=== PATIENT | female | born 1955 | race Caucasian/White ===

== ENCOUNTER 2016-07-06 15:10 | Emergency (ER) | payer MEDICAID ==
[2016-07-06 15:25] VITALS: BMI 38.3
--- NOTE | 2016-07-06 16:26 | EDPRACDOC ---
- General Chief Complaint: Head Injury Stated Complaint: FELL HIT BACK OF HEAD & BACK NLOC PALE Time Seen by Provider: 07/06/16 16:20 Information Source: Patient - History of Present Illness Onset: 3 days ago HPI: PT STATES SHE GOT "WEAK" WEDNESDAY NIGHT, FELL BACKWARDS, HIT HER HEAD ON THE WALL, NO LOC, COMPLAINS OF HEADACHE, NECK AND BACK PAIN. NO N/V, NO DIZZINESS. PT STATES USING HER USUAL OXYCONTIN AND OXYCODONE WITHOUT RELIEF. Pain Severity: Reports: Severe Injuries/Pain Location: Reports: neck, back Reason for Fall: Reports: lost balance Loss of Consciousness: no loss of consciousness Modifying Factors: improves with: movement Associated Symptoms (Fall): Reports: neck pain. Denies: abdominal pain, chest pain, confusion, dizziness, headache, lightheadedness, muscle spasms, nausea/ vomiting, ringing in ears, seizures, shortness of breath, slurred speech, trouble walking, vision changes Allergies/Adverse Reactions: Allergies amitriptyline Allergy (Verified 07/06/16 15:22) Fainting ampicillin Allergy (Verified 07/06/16 15:22) Itching duloxetine HCl [From Cymbalta] Allergy (Verified 07/06/16 15:22) Dizziness methadone Allergy (Verified 07/06/16 15:22) Itching orphenadrine citrate [From Norflex] Allergy (Verified 07/06/16 15:22) Difficulty Breathing ramelteon [From Rozerem] Allergy (Verified 07/06/16 15:22) Drowsiness decongestant Allergy (Uncoded 07/06/16 15:22) Itching Home Medications: Ambulatory Orders Alendronate Sodium [Fosamax] 70 mg PO WEEKLY 07/06/16 Atorvastatin Calcium 10 mg PO DAILY 07/06/16 Buspirone HCl 10 mg PO DAILY 07/06/16 Celecoxib (anti-inflammatory) [Celebrex] 100 mg PO BID 07/06/16 Cetirizine HCl 10 mg PO DAILY 07/06/16 Cyclobenzaprine HCl [Flexeril] 10 mg PO TID PRN #20 tablet 07/06/16 Diltiazem HCl [Diltiazem 24Hr Cd] 120 mg PO DAILY 07/06/16 Docusate Sodium [Colace] 100 mg PO HS 07/06/16 Fluticasone Furoate [Arnuity Ellipta] 1 mcg IH DAILY 07/06/16 Gabapentin 400 mg PO BID 07/06/16 Insulin Glargine,Hum.rec.anlog [Lantus] 50 unit SQ HS 07/06/16 Levothyroxine Sodium 112 mcg PO DAILY 07/06/16 Metaxalone [Skelaxin] 800 mg PO BID PRN 07/06/16 Metformin HCl 500 mg PO BID 07/06/16 Mirabegron [Myrbetriq] 50 mg PO DAILY 07/06/16 Oxycodone (OxyCONTIN) Ext Rel [Oxycontin] 20 mg PO BID 07/06/16 Oxycodone HCl [Oxycodone HCl ER] 10 mg PO Q8H 07/06/16 Pantoprazole Sodium [Protonix] 40 mg PO BID 07/06/16 Ranitidine HCl 300 mg PO DAILY 07/06/16 Sucralfate 1 gm PO DAILY 07/06/16 ED Past Medical History - History Reviewed Yes Nurses notes reviewed and agree except as marked - Patient Medical History Cardiac History: Reports: Hypertension, Congestive Heart Failure, Cardiac Catheterization, Hypercholesterolemia Respiratory History: Reports: Asthma, COPD. Denies: Pneumonia Musculoskeletal History: Reports: Arthritis (hands,back,legs), Gout Psychological History: Reports: Anxiety. Denies: Depression, Substance Use Disorder Systemic History: Reports: Anemia (Extent and nature of anemia not known), Diabetes, Hypothyroidism Additional Past Medical History: CHRONIC BACK PAIN Surgical History: Reports: Cholecystectomy, Cardiac Catheterization, Hernia Surgery (hiatal surgery), Tonsillectomy/Adnoidectomy - Family Medical History Reports: Hypertension, Diabetes, Cancer, Stroke, Cardiac Disorders - Social Medical History Smoking Status: Former smoker Social History: Denies: Substance Use Disorder ETOH: None Substance Abuse: None EDM Review of Systems - Review of Systems Constitutional: negative: Chills, Fever Eyes: negative: Blurred Vision, Double Vision Ears: negative: Drainage Throat: negative: Pain Nose: negative: Bleeding Respiratory: negative: Cough, Shortness of Breath, Wheezing Cardiovascular: negative: Chest Pain, Palpitations Gastrointestinal: negative: Diarrhea, Nausea, Pain, Vomiting Genitourinary: negative: Dysuria, Frequency Neurological: Headache. negative: Dizziness, Numbness, Weakness Musculoskeletal: Back, Neck Integumentary: No Symptoms Reported - Physical Exam Constitutional: Alert (Awake), No apparent distress Oriented to: Time, Person, Place Last recorded Vital Signs: Last Vital Signs Temp 97.8 F 07/06/16 15:10 Pulse 84 07/06/16 15:10 Resp 18 07/06/16 15:10 BP 140/65 07/06/16 15:10 Pulse Ox 97 07/06/16 15:10 Oxygen Pulse Oxygen Saturation 97 O2 Device Oxygen Flow Rate Fraction of Inspired Oxygen ( FIO2) - HEENT Head: Normal ( normocephalic) Eye Exam: Normal (PERRL, EOMI, Sclera white) Oropharynx: Normal (Pharynx:Moist without exudate,Gums-no swelling) Tympanic Membrane: Normal ENT EAC: Normal TMJ: Normal Nose: No Symptoms Reported (septum midline) Neck: Paraspinal Tenderness, Tender. negative: Limited ROM - Respiratory/Cardiovascular Respiratory: Normal - CTA (BBS clear to auscultation without adventitious sounds ) Cardiovascular: Normal (RRR without murmur, gallop or rub) - GI Auscultation: Normal (NABS) Palpation: Normal (Soft,No rebound or guarding, non distended) Tenderness: Non tender Mcarthur's Sign: Negative - Musculoskeletal Back: Thoracic TTP. negative: Thoracic Step-off, Lumbar Step-off, Lumbar TTP Extremities: Normal (Normal tone, Pulses 2+ No cyanosis or edema, FROM) - Integumentary Skin: Normal, Warm, Dry Lymphatics: Normal (no adenopathy) - Neurologic Memory Impaired: Normal Motor Function: Normal (Normal tone, Pulses 2+ No cyanosis or edema, FROM) Cranial Nerve: Normal (CN II-X11 intact sensation, strength 5/5) Cerebellar: Normal Mood Description: Normal Perception: Normal ED Injury/Fall Exam - Physical Exam Head Injury: no evidence of injury Extremity Exam: no evidence of injury, normal range of motion, non-tender, no pedal edema Skin: Normal, Warm, Dry - [place] Coma Score Best Eye Response (Zina): (4) open spontaneously Best Verbal Response ([place]): (5) oriented Best Motor Response ([place]): (6) obeys commands [place] Total: 15 - Differential Diagnosis Contusion, Fall, Fracture - Results 07/06/16 18:24 - Diagnostic Imaging C-SPINE Image interpreted by: Radiologist CERVICAL SPINE - COMPLETE 4+ VIEW COMPARISON: Thoracic spine reported separately. FINDINGS: There is no evidence of cervical spine fracture or prevertebral soft tissue swelling. Alignment is normal. No other significant bone abnormalities are identified. The cervicothoracic junction and odontoid are poorly visualized. If there is strong clinical suspicion for cervical spine fracture, recommend CT. Moderate foraminal narrowing C4-C5. Facet arthropathy. IMPRESSION: No visible cervical spine fracture or traumatic subluxation. However the cervicothoracic junction and odontoid are poorly visualized. CT recommended. T-SPINE Image interpreted by: Radiologist THORACIC SPINE 2 VIEWS COMPARISON: Chest radiographs 05/12/2016. FINDINGS: There are 12 rib-bearing thoracic type vertebral bodies near anatomic alignment. There is a mild convex right scoliosis. There are mild degenerative changes throughout the spine. No evidence of acute fracture, paraspinal hematoma or widening of the interpedicular distance. IMPRESSION: No evidence of acute thoracic spine injury. Mild spondylosis. CT C-SPINE Image interpreted by: Radiologist CT CERVICAL SPINE WITHOUT CONTRAST TECHNIQUE: Multidetector CT imaging of the cervical spine was performed without intravenous contrast. Multiplanar CT image reconstructions were also generated. COMPARISON: Plain films earlier today. CT cervical spine 11/28/2015. FINDINGS: There is no visible cervical spine fracture, traumatic subluxation, prevertebral soft tissue swelling, or intraspinal hematoma. Intervertebral disc spaces are maintained. Moderately advanced facet arthropathy worst at C4-5 on the RIGHT. The odontoid is intact. No neck masses. Azygos lobe. No lung masses. No change from priors. IMPRESSION: No cervical spine fracture or traumatic subluxation. - Additional Information OLD RECORDS REVIEWED, H/H AND WBCs STABLE OVER LAST FEW MONTHS. Decision Time to Discharge: 19:23 - Departure Disposition: Home Condition: Stable Final Diagnosis: Neck pain Thoracic back pain Qualifiers: Chronicity: acute Back pain laterality: bilateral Qualified Code(s): M54.6 - Pain in thoracic spine Accidental fall Qualifiers: Encounter type: initial encounter Qualified Code(s): W19.XXXA - Unspecified fall, initial encounter Anemia Qualifiers: Anemia type: iron deficiency Iron deficiency anemia type: unspecified iron deficiency Qualified Code(s): D50.9 - Iron deficiency anemia, unspecified Instructions: Back Pain (ED) Education/Counseling Given To: Patient Education/Counseling Given Regarding: Diagnosis, Treatment, Prognosis, Follow Up Referrals: Wendy Neves MD [Primary Care Provider] - One Week Prescriptions: New Cyclobenzaprine HCl [Flexeril] 10 mg PO TID PRN #20 tablet PRN Reason: Muscle Spasms Continue Insulin Glargine,Hum.rec.anlog [Lantus] 50 unit SQ HS Gabapentin 400 mg PO BID Diltiazem HCl [Diltiazem 24Hr Cd] 120 mg PO DAILY Metformin HCl 500 mg PO BID Cetirizine HCl 10 mg PO DAILY Atorvastatin Calcium 10 mg PO DAILY Levothyroxine Sodium 112 mcg PO DAILY Buspirone HCl 10 mg PO DAILY Pantoprazole Sodium [Protonix] 40 mg PO BID Oxycodone HCl [Oxycodone HCl ER] 10 mg PO Q8H Docusate Sodium [Colace] 100 mg PO HS Ranitidine HCl 300 mg PO DAILY Oxycodone (OxyCONTIN) Ext Rel [Oxycontin] 20 mg PO BID Alendronate Sodium [Fosamax] 70 mg PO WEEKLY Sucralfate 1 gm PO DAILY Mirabegron [Myrbetriq] 50 mg PO DAILY Fluticasone Furoate [Arnuity Ellipta] 1 mcg IH DAILY Celecoxib (anti-inflammatory) [Celebrex] 100 mg PO BID Metaxalone [Skelaxin] 800 mg PO BID PRN PRN Reason: Pain Additional Instructions: CONTINUE YOUR USUAL MEDICATIONS BEFORE.
[2016-07-06] MEDS ORDERED: DIAZEPAM 5 MG TAB PO ONE (16:27)
[2016-07-06] MEDS ORDERED: KETOROLAC TROMETHAMINE 10 MG TAB PO ONE (16:27)
--- NOTE | 2016-07-06 17:27 | DIRPT ---
CLINICAL DATA: Patient fell 2 days ago. Neck pain. EXAM: CERVICAL SPINE - COMPLETE 4+ VIEW COMPARISON: Thoracic spine reported separately. FINDINGS: There is no evidence of cervical spine fracture or prevertebral soft tissue swelling. Alignment is normal. No other significant bone abnormalities are identified. The cervicothoracic junction and odontoid are poorly visualized. If there is strong clinical suspicion for cervical spine fracture, recommend CT. Moderate foraminal narrowing C4-C5. Facet arthropathy. IMPRESSION: No visible cervical spine fracture or traumatic subluxation. However the cervicothoracic junction and odontoid are poorly visualized. CT recommended. Electronically Signed By: Cade Hayes M.D. On: 07/06/2016 17:24
--- NOTE | 2016-07-06 17:30 | DIRPT ---
CLINICAL DATA: Headache, neck and back pain since falling 2 days ago. Episode of weakness preceding fall. EXAM: THORACIC SPINE 2 VIEWS COMPARISON: Chest radiographs 05/12/2016. FINDINGS: There are 12 rib-bearing thoracic type vertebral bodies near anatomic alignment. There is a mild convex right scoliosis. There are mild degenerative changes throughout the spine. No evidence of acute fracture, paraspinal hematoma or widening of the interpedicular distance. IMPRESSION: No evidence of acute thoracic spine injury. Mild spondylosis. Electronically Signed By: Dirk Gabriel M.D. On: 07/06/2016 17:27
--- NOTE | 2016-07-06 18:32 | DIRPT ---
CLINICAL DATA: Pain, fell. EXAM: CT CERVICAL SPINE WITHOUT CONTRAST TECHNIQUE: Multidetector CT imaging of the cervical spine was performed without intravenous contrast. Multiplanar CT image reconstructions were also generated. COMPARISON: Plain films earlier today. CT cervical spine 11/28/2015. FINDINGS: There is no visible cervical spine fracture, traumatic subluxation, prevertebral soft tissue swelling, or intraspinal hematoma. Intervertebral disc spaces are maintained. Moderately advanced facet arthropathy worst at C4-5 on the RIGHT. The odontoid is intact. No neck masses. Azygos lobe. No lung masses. No change from priors. IMPRESSION: No cervical spine fracture or traumatic subluxation. Electronically Signed By: Cade Hayes M.D. On: 07/06/2016 18:29
[2016-07-06 18:34] LABS: AUTOMATED BASOPHIL 0.9 % (0-2); AUTOMATED EOSINOPHIL 2.9 % (0-5); AUTOMATED LYMPH 33.6 % (17-44); AUTOMATED MONOCYTE 8.1 % (3-10); AUTOMATED NEUTROPHIL 54.5 % (45-76); MPV 9.1 fL (7.4-10.4)
[2016-07-06 19:33] VITALS: BP 136/70; PULSE 76; TEMP 97.9
== END 2016-07-06 19:45 | disposition home or self-care (01) ==
LOC: ED 15:10 → EDMC 19:45
DX: M54.2 Cervicalgia (principal); M54.6 Pain in thoracic spine; D50.9 Iron deficiency anemia, unspecified; W19.XXXA Unspecified fall, initial encounter; Y93.9 Activity, unspecified
CPT/HCPCS: 36415; 72050; 72070; 72125; 85025; 99283; J3490